=== PATIENT | male | born 1990 | race African-American/Black ===

== ENCOUNTER 2016-12-09 12:03 | Emergency (ER) | payer SELFPAY ==
[~2016-12-09] VITALS: Ht 180.3 cm; Wt 77.1 kg
[2016-12-09 12:21] VITALS: BP 133/81
[2016-12-09] MEDS ORDERED: TRIA15OI TP (12:48)
[2016-12-09] MEDS ORDERED: DIPH25CA58 PO (12:48)
[2016-12-09] MEDS ORDERED: PRED50TA PO (12:48)
[2016-12-09] MEDS ORDERED: FAMO-63 PO (12:48)
--- NOTE | 2016-12-09 12:48 | PHYS DOC ---
Past Medical History Past Medical History: No Pertinent History Past Surgical History: No Surgical History Alcohol Use: None Drug Use: None Adult General Chief Complaint Chief Complaint: SKIN PROBLEM HPI HPI Patient is a 26 year old male with no significant medical history who presents with a pruritic rash that began 2 days ago. Patient denies any new soaps or laundry detergents or any source for this rash. Review of Systems Review of Systems Constitutional: Denies fever or chills [] Musculoskeletal: Denies back pain or joint pain [] Integument: rash Neurologic: Denies headache, focal weakness or sensory changes [] Endocrine: Denies polyuria or polydipsia [] Allergies Allergies Allergies Coded Allergies Type Severity Reaction Last Updated Verified No Known Drug Allergies 12/09/16 No Physical Exam Physical Exam Constitutional: Well developed, well nourished, no acute distress, non-toxic appearance. [] Skin: Patient has mild amount of linear erythematous rash on the chest, back, bilateral upper extremity and lower extremities. Back: No tenderness, no CVA tenderness. [] Extremities: No tenderness, no cyanosis, no clubbing, ROM intact, no edema. [] Neurologic: Alert and oriented X 3, normal motor function, normal sensory function, no focal deficits noted. [] Psychologic: Affect normal, judgement normal, mood normal. [] Current Patient Data Vital Signs Vital Signs Date Time Temp Pulse Resp B/P (MAP) Pulse Ox O2 Delivery O2 Flow Rate FiO2 12/09/16 12:21 98.2 76 20 100 Room Air 98.2 EKG EKG [] Radiology/Procedures Radiology/Procedures [] Course & Med Decision Making Course & Med Decision Making Pertinent Labs and Imaging studies reviewed. (See chart for details) Patient has contact dermatitis rash due to unknown cause. The rash is spread throughout the body. 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 Dragon Disclaimer Dragon Disclaimer This electronic medical record was generated, in whole or in part, using a voice recognition dictation system. Departure Departure Impression: Primary Impression: Contact dermatitis Disposition: HOME, SELF-CARE Condition: STABLE Referrals: NO PCP (PCP) follow up in 2 weeks GENE HAMILTON MD follow up in 2 weeks Patient Instructions: Contact Dermatitis, Dbio-ds-Lado Additional Instructions: You were seen for contact dermatitis rash due to unknown cause. We put you on medications to help with this rash. Use the medications as prescribed. Follow- up with the provided cold mill supervisor or your own doctor in 2 weeks if symptoms continue. Scripts Prednisone (PREDNISONE) 50 Mg Tablet 1 TAB PO DAILY, #5 TAB Prov: DANIS SLACEDO APRN 12/09/16 Diphenhydramine Hcl (BENADRYL) 25 Mg Capsule 1 CAP PO Q4HRS W/A Y for RASH, #30 CAP 1 Refill Prov: DANIS SALCEDO APRN 12/09/16 Famotidine (PEPCID) 20 Mg Tablet 20 MG PO DAILY, #14 TAB Prov: DANIS SALCEDO APRN 12/09/16 Triamcinolone Acetonide (TRIAMCINOLONE ACETONIDE 0.1% OINT) 15 Gm Oint...g. 1 MAYTE TP TID for WOUND CARE, #1 TUBE MIX WITH EUCERIN DIRECTED BY PHYSICIAN Prov: DANIS SALCEDO APRN 12/09/16 Problem Qualifiers Primary Impression: Contact dermatitis Contact dermatitis type: unspecified Contact dermatitis trigger: unspecified trigger Qualified Codes: L25.9 - Unspecified contact dermatitis, unspecified cause DANIS SALCEDO APRN Dec 09, 2016 12:48
== END 2016-12-09 12:50 | disposition home or self-care (01) ==
LOC: ER 12:03
DX: L25.9 Unspecified contact dermatitis, unspecified cause (principal)
CPT/HCPCS: 99283